=== PATIENT | male | born 1960 | race Caucasian/White ===

== ENCOUNTER 2016-10-11 12:00 | Emergency (ER) | payer SELFPAY ==
[~2016-10-11 12:00] MED LIST: AMOXICILLIN500 MG PO; BACTRIM DS TABL1 TAB PO; CYCLOBENZAPRINE10 M1 PO; CYCLOBENZAPRINE10 MG PO; FLEXERIL10 MG PO; FLONASE16 G1; HYDROCODON-ACE1 EAC7 PO; IMITREX25 M1 PO; NORCO 10/325 TA1 TAB PO; NORCO 5/325 TAB1 TAB PO; ROBITUSSIN; VICODIN 5/500 T1 TAB PO
[2016-10-11] MEDS ORDERED: HYDROCODON-ACE1 EA16 PO (14:47)
== END 2016-10-11 15:00 ==
LOC: EDMED 12:00
DX: M54.42 Lumbago with sciatica, left side (principal); M51.9 Unspecified thoracic, thoracolumbar and lumbosacral intervertebral disc disorder; Z98.890 Other specified postprocedural states; F17.200 Nicotine dependence, unspecified, uncomplicated